=== PATIENT | female | born 1995 | race Two or more races ===

== ENCOUNTER 2018-06-14 05:01 | Emergency (ER) | payer MEDICAID ==
[~2018-06-14] VITALS: Ht 170.2 cm; Wt 61.2 kg
[2018-06-14 05:20] VITALS: BP 152/96
[2018-06-14] MEDS ORDERED: IBUPROFEN 800 MG TAB PO ONE (07:30)
== END 2018-06-14 07:38 | disposition home or self-care (01) ==
LOC: EDBD 05:01 → EDUNIT# 05:01 → ER 05:09
DX: S60.221A Contusion of right hand, initial encounter (principal); S60.222A Contusion of left hand, initial encounter; S00.81XA Abrasion of other part of head, initial encounter; G43.909 Migraine, unspecified, not intractable, without status migrainosus; Z90.49 Acquired absence of other specified parts of digestive tract; Z88.8 Allergy status to other drugs, medicaments and biological substances; V49.59XA Passenger injured in collision with other motor vehicles in traffic accident, initial encounter; Y93.89 Activity, other specified; Y99.8 Other external cause status; Y92.89 Other specified places as the place of occurrence of the external cause